=== PATIENT | female | born 1930 | race Caucasian/White ===

== ENCOUNTER 2016-10-22 11:41 | Day surgery (SDC) | payer OTHER ==
[~2016-10-22] VITALS: Ht 144.8 cm; Wt 53.1 kg
[~2016-10-22 11:41] MED LIST: CARDIZEM120 MG PO; ELIQUIS2.5 MG PO; HYDRALAZINE HCL50 MG PO; LASIX40 MG PO; LIPITOR20 MG PO; TYLENOL EXTRA500 MG PO; VITAMIN D31000 UNIT PO
[2016-10-22 12:24] VITALS: BP 172/90
[2016-10-22 16:55] VITALS: BP 146/65
[2016-10-22 18:10] VITALS: BP 137/63
== END 2016-10-22 18:10 | disposition home or self-care (01) ==
LOC: SDC 11:41
DX: H59.021 Cataract (lens) fragments in eye following cataract surgery, right eye (principal); H27.111 Subluxation of lens, right eye; H35.371 Puckering of macula, right eye; I48.91 Unspecified atrial fibrillation; E78.5 Hyperlipidemia, unspecified; M19.90 Unspecified osteoarthritis, unspecified site; D64.9 Anemia, unspecified; Z79.82 Long term (current) use of aspirin
CPT/HCPCS: J0690; J1100; J1120; J2405; J2795; J3010; J3300